=== PATIENT | female | born 1970 | race Caucasian/White ===

== ENCOUNTER → 2018-05-10 | Outpatient (CLI) | payer OTHER, SELFPAY ==
[~2018-05-10] MED LIST: ACET325 PO; ALBU90OI6 INH; Advil200 M1 PO; Aldactone25 MG PO; BENTYL10 MG PO; CEPH500 PO; CIPR750 PO; CIPRO500 MG PO; Ceftin250 MG PO; DIPATR PO; Flonase 0.05% N16 GM; GABA100 PO; GLIP5 PO; HYDR1TAB94 PO; Hydrocodone-Ap1 EA23 PO; Iron Supplemen325 MG PO; KETO120T TOP; LORA1 PO; MEDR150I IM; METCAR500 PO; METCAR750 PO; METF500 PO; METO10 PO; METR250 PO; METR500 PO; MOMENI; MONT10T; MONT10T PO; MONT5TCH PO; MULT50L PO; Minipress1 MG PO; Multi-Day Vita1 EACH PO; NAPR220 PO; OLAN5 PO; ONDA8 PO; OXYACE7.5T PO; POTASSIUM GLUC500 MG PO; POTASSIUM GLUCO90 MG PO; POTCIT5 PO; PRAZ1 PO; PROG100 PO; Percocet 5-3251 EACH PO; Prometrium200 MG PO; Pyridium200 MG PO; RANI150 PO; Robaxin-750750 MG PO; SPIR25 PO; SUMA20NI; SUMA25 PO; SUMA5NI; Solaraze100 GM; Spironolactone25 MG PO; TRAM50 PO; Ultram50 MG PO; VERA80 PO; VITAMIN C500 MG PO; VOLTAREN GEL TOP; ZYRTEC10 M1 PO; Zofran4 MG PO
== END ==
LOC: LAB 08:30 → LAB SHORT 08:30
DX: R30.0 Dysuria (principal)
CPT/HCPCS: 87086

== ENCOUNTER 2018-06-25 21:24 | Emergency (ER) | payer OTHER, SELFPAY ==
[~2018-06-25] VITALS: Ht 165.1 cm; Wt 108.9 kg
[2018-06-25] MEDS ORDERED: GABA100 (21:54)
[2018-06-25 22:29] LABS: Source, Urine Clean Catch
[2018-06-25 22:34] LABS: Bilirubin, Urine Neg (Neg); Blood, Urine Neg (Neg); Glucose Qualitative, Urine Neg (Neg); Ketones, Urine Neg (Neg); Leukocyte Esterase, Urine Neg (Neg); Nitrite, Urine Neg (Neg); Protein, Urine Neg (Neg); Urobilinogen, Urine 1+ (Normal)
[2018-06-25 22:36] LABS: Appearance, Urine Clear (Clear); Color, Urine Yellow (P-Yellow)
[2018-06-25 23:06] LABS: Calcium, Ionized (POC) 1.15 mmol/L (1.10-1.46); Chloride (POC) 103 mmol/L (98-108); Creatinine (POC) 0.7 mg/dL (0.6-1.0); Glucose (ISTAT POC) 94 mg/dL (70-99); Hemoglobin (POC) 12.9 g/dL (12.0-16.0); Potassium (POC) 3.9 mmol/L (3.5-5.5); Sodium (POC) 142 mmol/L (135-148); Total CO2 (POC) 29 mmol/L (21-32)
[2018-06-25 23:07] LABS: BASOPHILS ABSOLUTE AUTO 0.03 K/mm3 (0.00-0.23); BASOPHILS PERCENT AUTO 0 % (0-2); EOSINOPHILS ABSOLUTE AUTO 0.16 K/mm3 (0.00-0.68); EOSINOPHILS PERCENT AUTO 2 % (0-6); IMMATURE GRAN ABSOLUTE AUTO 0.01 K/mm3 (0.00-0.10); IMMATURE GRAN PERCENT AUTO 0 % (0-1); LYMPHOCYTES PERCENT AUTO 40 % (21-46); MONOCYTES ABSOLUTE AUTO 0.55 K/mm3 (0.16-1.47); MONOCYTES PERCENT AUTO 8 % (4-13); Mean Corpuscular HGB 30.8 pg (26.0-34.0); Mean Corpuscular HGB Conc 32.5 g/dL (31.5-36.5); Mean Corpuscular Volume 95 fL (80-100); Mean Platelet Volume 8.8 fL (9.1-12.4); NEUTROPHILS PERCENT AUTO 49 % (41-73); Platelet Count 276 K/mm3 (150-400); RDW Coefficient Variation 12.6 % (11.7-14.2); RDW Standard Deviation 43.7 fL (35.1-46.3); Red Blood Cell Count 4.22 M/mm3 (3.80-5.20); White Blood Cell Count 6.75 K/mm3 (4.00-11.30)
[2018-06-25 23:23] LABS: Alanine Aminotransfer (ALT/SGP 23 U/L (12-78); Albumin, Blood 3.4 g/dL (3.4-5.0); Albumin/Globulin Ratio 0.9 (0.8-1.8); Alk Phos 88 U/L (50-136); Anion Gap 6 mmol/L (6-16); Aspartate Aminotrans (AST/SGOT 19 U/L (12-37); Bilirubin, Total 0.4 mg/dL (0.1-1.0); Blood Urea Nitrogen 11 mg/dL (8-24); Bun/Creatinine Ratio 16.4 (12.0-20.0); CO2, Blood 28 mmol/L (21-32); Calcium, Blood 8.6 mg/dL (8.5-10.1); Chloride, Blood 109 mmol/L (98-108); Creatinine, Blood 0.67 mg/dL (0.40-1.00); Globulin, Blood 3.7 g/dL (2.2-4.0); Glomerular Filtration Rate >60 (60-); Glucose, Blood 91 mg/dL (70-99); Potassium, Blood 4.1 mmol/L (3.5-5.5); Sodium, Blood 143 mmol/L (136-145); Total Protein, Blood 7.1 g/dL (6.4-8.2)
[2018-06-26] MEDS ORDERED: HYDR1TAB94 PO (00:40)
== END 2018-06-26 00:55 | disposition home or self-care (01) ==
LOC: ER 21:24
PROVIDERS: Emergency Medicine
DX: R10.9 Unspecified abdominal pain (principal); M54.6 Pain in thoracic spine; M54.5 Low back pain; Z88.8 Allergy status to other drugs, medicaments and biological substances; Z88.0 Allergy status to penicillin; Z88.2 Allergy status to sulfonamides; Z79.899 Other long term (current) drug therapy; G43.909 Migraine, unspecified, not intractable, without status migrainosus; Z87.891 Personal history of nicotine dependence
CPT/HCPCS: 36415; 74176; 80047; 80053; 81003; 85014; 85025; 96374; 96375; 99284-25; J2405; J3010; J7120

== ENCOUNTER → 2019-02-19 | Outpatient (CLI) | payer OTHER ==
[~2019-02-19] MED LIST changes: +DICLOFENAC SOD100 G1 TOP; +GABA100; +MELO7.5 PO; +PRED20 PO
== END | disposition home or self-care (01) ==
LOC: LAB 13:42 → LAB SHORT 13:42
DX: R21 Rash and other nonspecific skin eruption (principal)
CPT/HCPCS: 87102

== ENCOUNTER 2020-01-09 15:14 | Inpatient (IN) | payer OTHER ==
[~2020-01-09] VITALS: Ht 165.1 cm; Wt 110.0 kg
[2020-01-10] MEDS ORDERED: Imitrex50 MG PO (11:22)
[2020-01-10] MEDS ORDERED: ONDA4 PO (11:23)
[2020-01-10] MEDS ORDERED: ALBU90OI INH (11:23)
[2020-01-10] MEDS ORDERED: META800 PO (11:24)
[2020-01-10] MEDS ORDERED: Flonase 0.05% N16 GM (11:24)
[2020-01-10] MEDS ORDERED: MOTION RELIEF25 MG PO (11:25)
[2020-01-10] MEDS ORDERED: THERA1 EACH PO (11:26)
[2020-01-10] MEDS ORDERED: CLIMARA1 EACH TOP (11:26)
[2020-01-10] MEDS ORDERED: PROM25 PO (11:26)
--- NOTE | 2020-01-12 08:34 | NUR ---
Ambulatory in Day Surgery. Patient states colon prep results clear. History, Chart, Medications and Allergies reviewed before start of procedure. Lungs clear T/O to Auscultation. Patient reports completing Chlorhexadine shower X2 prior to admission to hospital. Patient confirms NPO status and agrees with scheduled surgery. Pre-Op teaching done. Pt verbalizes understanding. PATIENT SON IN WAITING AREA.
--- NOTE | 2020-01-12 12:15 | NUR ---
PT AWAKE AND ALERT. RESPIRATIONS AUDIBLY WZ. LUNGS COARSE THROUGH OUT. SATS 100% ON 10 LITERS NON-REBREATHER. DUO NEB GIVEN. PT REPORTS 6/10 ABDOMINAL/INCISIONAL PAIN. MED WITH FENTANYL 25 MCG IVP X1 AND REGLAN 10 MG IVP X 1 FOR PAIN AND NAUSEA RESPECTIVELY. EPIDURAL INITIATED AT 10 ML/HR. WILL TITRATE UP EVERY 30 MIN TO GOAL PAIN LEVEL 3 OR LESS. EPIDURAL SITE WITH SMALL AMOUNT OF SANGINOUS DRAINAGE NOTED. DR. SOUTH AWARE. WOUND VAC/ASHLY INTACT TO MIDLINE INCISION. ABDOMINAL BINDER PLACED. PT MOVING ALL EXTREMITIES AND ABLE TO ASSIST SOMEWHAT WHEN TURNED. PAS IN PLACE.
--- NOTE | 2020-01-12 12:45 | NUR ---
PT NO LONGER AUDIBLY WZ AND STATES THAT SHE IS "BREATHING BETTER." PLACED ON 2 LITERS NASAL CANULA AND SATS>95%. PT CONTINUES TO REPORTS 6/10 ABDOMINAL INCISONAL PAIN DESPITE EPIDURAL AT 10 ML/HR. TITRATED UP TO 12 ML/HR.
--- NOTE | 2020-01-12 13:00 | NUR ---
PT APPEARS TO BE DOZING WHEN NOT DISTURBED. WHEN ASKED HER PAIN LEVEL, SHE REPORTS 4/10. SBP CONTINUES TO TREND IN 90'S.
--- NOTE | 2020-01-12 14:00 | NUR ---
PT BEGAN SHIVERING AT APROX. 1330-MULTIPLE WARM BLANKETS APPLIED. DR. SOUTH NOTIFIED. ORDER GIVEN FOR ONE TIME DOSE OF DEMEROL.HOWEVER, THIS MED IS NOT AVAILABLE IN [facility].
--- NOTE | 2020-01-12 17:22 | NUR ---
SUMMARY PT ARRIVED TO UNIT FROM PACU THIS AFTERNOON S/P SIGMOID COLECTOMY. ASHLY DRESSING TO MIDLINE INCISION CDI W/ABD BINDER IN PLACE UPON ARRIVAL. SMALL AMT DRAINAGE NOTED AROUND EPIDURAL WHICH TRAMPOLINE TEAM COACH STATED DR SOUTH WAS AWARE OF. NO NEW DRAINAGE NOTED AROUND SITE. PT REPORTS PAIN 4-5/10. REPOSITIONED FOR COMFORT. PT REPORTS R LEG WEAK, UNABLE TO MOVE WELL ON OWN. DECREASED SENSATION NOTED FROM UMBILICUS DOWN TO KNEE. TOLERATING SIPS OF WATER. VSS. CALL LIGHT IN REACH.
--- NOTE | 2020-01-13 01:10 | NUR ---
EPIDURAL RATE DECREASED TO 10 MCG/HR D/T LOW BP.
--- NOTE | 2020-01-13 03:19 | NUR ---
PT FOUND TO DESATURATE TO 86% WHEN SLEEPING. ENCOURAGED DB&C, WHICH IMPROVES SATURATIONS FOR APPROX 1-2 MINS. O2 @ 1 LPM APPLIED VIA NC. SATURATIONS MAINTAINING >91%.
[2020-01-13 05:24] LABS: BASOPHILS ABSOLUTE AUTO 0.01 K/mm3 (0.00-0.23); BASOPHILS PERCENT AUTO 0 % (0-2); EOSINOPHILS ABSOLUTE AUTO 0.04 K/mm3 (0.00-0.68); EOSINOPHILS PERCENT AUTO 1 % (0-6); Hematocrit 37.3 % (33.0-51.0); IMMATURE GRAN ABSOLUTE AUTO 0.01 K/mm3 (0.00-0.10); IMMATURE GRAN PERCENT AUTO 0 % (0-1); LYMPHOCYTES ABSOLUTE AUTO 1.28 K/mm3 (0.84-5.20); LYMPHOCYTES PERCENT AUTO 16 % (21-46); MONOCYTES ABSOLUTE AUTO 0.67 K/mm3 (0.16-1.47); MONOCYTES PERCENT AUTO 8 % (4-13); Mean Corpuscular HGB 31.8 pg (26.0-34.0); Mean Corpuscular HGB Conc 32.2 g/dL (31.5-36.5); Mean Corpuscular Volume 99 fL (80-100); Mean Platelet Volume 9.3 fL (9.1-12.4); NEUTROPHILS ABSOLUTE AUTO 6.08 K/mm3 (1.96-9.15); NEUTROPHILS PERCENT AUTO 75 % (41-73); Platelet Count 250 K/mm3 (150-400); RDW Coefficient Variation 12.8 % (11.7-14.2); Red Blood Cell Count 3.77 M/mm3 (3.80-5.20); White Blood Cell Count 8.09 K/mm3 (4.00-11.30)
--- NOTE | 2020-01-13 05:52 | NUR ---
SHIFT SUMMARY: AUGUST HAS RESTED VERY LITTLE THIS SHIFT. SHE IS POD1 TODAY FOR A SIGMOID COLECTOMY. SHE IS ON Q 1 HOUR VITAL SIGN CHECKS FOR THE EPIDURAL THAT WAS PLACED YESTERDAY IN THE OR. HER CONTINUOUS RATE ON THE EPIDURAL WAS TURNED DOWN TO 10 MCG/HR D/T LOW BP. HER BP ON ADMISSION TO DAY SURGERY YESTERDAY WAS 102/72. SHE DID REPORT FEELING DEHYDRATED D/T DRINKING THE COLON PREP PRIOR TO SURGERY. SHE IS ABLE TO MAKE HER NEEDS KNOWN, USES THE CALL LIGHT APPROPRIATELY. MIDLINE INCISION C/D&I, ASHLY IN PLACE. IV TO R AC PATENT. SHE REPORTS DECREASED SENSATION BEGINNING AT LOW ABDOMEN AND RESOLVING AT KNEE LEVEL. SHE DOES REPORT SOME WEAKNESS IN THE RIGHT LEG, BUT NONE IN THE LEFT. SHE REPORTS THAT THE EPIDURAL, K-PAD, AND TORADOL HAVE KEPT HER PAIN AT A TOLERABLE LEVEL. SHE IS TOLERATING PO INTAKE WELL, DENIES N/V. SHE DOES STATE THAT HER RIGHT FOOT HAS TINGLING, "LIKE IT FELL ASLEEP". 1-0.5 LPM OF O2 VIA NC WAS APPLIED D/T DESATURATIONS WHEN SHE WAS SLEEPING. WALDRON IN PLACE DRAINING CLEAR, YELLOW URINE. SHE DID SIT AT THE SIDE OF THE BED FOR A SHORT TIME THIS SHIFT WITH THE ASSISTANCE OF ONE STAFF MEMBER. SHE IS LYING IN BED WITH HER CALL LIGHT IN REACH. WILL REPORT TO DAY SHIFT RN.
[2020-01-13 05:53] LABS: Anion Gap 8 mmol/L (6-16); Blood Urea Nitrogen 7 mg/dL (8-24); Bun/Creatinine Ratio 10.7 (12.0-20.0); CO2, Blood 24 mmol/L (21-32); Calcium, Blood 8.4 mg/dL (8.5-10.1); Chloride, Blood 111 mmol/L (98-108); Creatinine, Blood 0.65 mg/dL (0.40-1.00); Glomerular Filtration Rate >60 (60-); Glucose, Blood 120 mg/dL (70-99); Potassium, Blood 3.8 mmol/L (3.5-5.5); Sodium, Blood 143 mmol/L (136-145)
--- NOTE | 2020-01-13 14:41 | NUR ---
SHIFT SUMMARY PT A&OX4, VSS, POD1 SIGMOID COLECTOMY, MIDLINE ASHLY, ABD BINDER, KPAD ON. EPIDURAL AT 10MLS/HR, PT REP PAIN MANAGED WELL; DECREASED SENSATION T10-L3, RLE N&T. WALDRON PATENT & DRAINING YELLOW URINE, STAT LOCK ON, OFF FLOOR. INGRID CLEAR LIQ DIET; DENIES N&V. AMB W/2 PP MAX ASSIST TO CHAIR. NO IV ACCESS ORDER. WILL REPORT TO NEXT RN.
--- NOTE | 2020-01-13 16:55 | NUR ---
assumed care of pt from ines box rn
--- NOTE | 2020-01-14 05:24 | NUR ---
SHIFT SUMMARY: AUGUST RESTED INTERMITTENTLY THIS SHIFT. SHE IS A&OX4, NO IV ACCESS. SHE HAS COMPLAINED OF NAUSEA THIS SHIFT AND WAS ENCOURAGED TO DECREASE PO INTAKE TO SMALL SIPS INSTEAD OF PUSHING INTAKE. SHE WAS UP TO THE CHAIR FOR A TIME, THEN RETURNED TO BED WTIH 2 PERSON HEAVY ASSIST. SHE HAS DECREASED SENSATION FROM WAISTLINE TO KNEES WITH N/T & WEAKNESS IN THE RLE. PAS AND BHARATI HOSE IN PLACE. WALDRON DRAINING DARK YELLOW URINE. SHE IS ABLE TO MAKE HER NEEDS KNOWN. SHE USES HER CALL LIGHT APPROPRIATELY. IS ENCOURAGED. SHE IS LYING IN BED WITH HER CALL LIGHT IN REACH. WILL REPORT TO DAY SHIFT RN.
--- NOTE | 2020-01-14 13:49 | NUR ---
NAUSEA PT C/O NAUSEA, MEDICATED WITH ZOFRAN AT APROX 1310. PT GIVEN EMESIS BAG. PT STATES HEART FEELS "FLUTTERY" VS CHECKED AND ALL WNL. PRIMARY RN WILL ADMINISTER ATIVAN PER EMAR FOR ANXIETY.
--- NOTE | 2020-01-14 17:38 | NUR ---
SHIFT SUMMARY NO ACUTE CHANGES. DERMATOMES L1-L3. RLE STILL WITH NUMBNESS, BUT PT REPORTS SHE IS ABLE TO WIGGLE TOES/FLEX FEET MORE TODAY THAN YESTERDAY. EPIDURAL IN PLACE AND SITE WNL. PT REPORTS PAIN 7/10 MOST OF SHIFT. IBUPROFEN GIVEN. PT ALSO INTERMITTENTLY NAUSEOUS. ZOFRAN GIVEN. SLOWLY INGRID CLEARS/FULL LIQ DIET. CONT TO PASS GAS AND HAD SMALL AMOUNT OF LIQ STOOL TODAY. NO IV ACCESS PER DR. HEARD. PT UP TO CHAIR TODAY. PLAN IS FOR EPIDURAL TO BE DC'D TOMORROW. CALL LIGHT WITHIN REACH.
--- NOTE | 2020-01-15 04:41 | NUR ---
SHIFT SUMMARY: AUGUST HAS RESTED INTERMITTENTLY THIS SHIFT. A&OX4. REPORTS PAIN IMPROVED AFTER NAUSEA IMPROVED WITH FULL LIQUID DIET. ORA. VSS. SHE IS SITTING IN THE RECLINER WITH HER CALL LIGHT IN REACH.
--- NOTE | 2020-01-15 09:11 | NUR ---
01/15/20 0911 Antonella Covarrubias CHART AUDITS, VERIFICATIONS.
--- NOTE | 2020-01-15 17:57 | NUR ---
SUMMARY NO ACUTE CHANGES T/O SHIFT. PT'S EPIDURAL DC'D, MEDICATED PER ORDERS FOR PAIN. PT REPORTS RLE CONTINUES TO "FEEL FUNNY" STATING FEELS WARM, THEN COLD AND PINS AND NEEDLES AT TIMES. NO REDNESS OR SWELLING NOTED TO RLE. PT TOLERATING FULL LIQUIDS. PLAN TO ADVANCE TO REGULAR DIET FOR BREAKFAST. PT HAS BEEN SITTING UP IN CHAIR MOST OF DAY, STATING MORE COMFORTABLE THAN BED. PASSING FLATUS AND HAVING LIQUID GREEN STOOLS.
--- NOTE | 2020-01-16 04:32 | NUR ---
SHIFT SUMMARY: PT S/P SIGMOID COLECTOMY. PAIN MANAGED WITH PERCOCET PER EMAR. PT OUT OF BED W/FWW AND SBA. VOIDING SMALL AMOUNTS EACH TIME. BLADDER SCAN SHOWED 48CC. PT ENCOURAGED TO INCREASE PO INTAKE TO STAY HYDRATED. PT PASSING FLATUS AND HAVING SMALL LIQ BM'S. ASHLY DRESSING CDI WITH FOAM COMPRESSED. ABD BINDER IN PLACE. PT USING K-PAD FOR COMFORT. PT ENC TO USE INCENTIVE SPIROMETER O2 AT 90% THIS MORNING. PT AMBULATING HALLWAY THIS MORNING. RLE REMAINS WEAK WITH SLIGHT N/T. PT REPORTS MAINLY N/T FROM HIP TO KNEE. CBG'S STABLE THIS SHIFT.
--- NOTE | 2020-01-16 13:38 | NUR ---
DR HEARD IN TO SEE PT.
--- NOTE | 2020-01-16 18:25 | NUR ---
SUMMARY NO ACUTE CHANGES T/O SHIFT. PT TOLERATING SMALL AMOUNTS REGULAR DIET. MEDICATED ONCE DURING SHIFT THIS AM FOR NAUSEA. MEDICATED T/O SHIFT FOR ABDOMINAL PAIN. PT NOW REPORTING HALEY; PROVIDED ICE PACK WHICH PT PLACED TO NECK. AMBULATED IN HALLS. SAT UP IN CHAIR T/O SHIFT. VOIDING AND PASSING STOOL. CALL LIGHT IN REACH.
--- NOTE | 2020-01-17 05:49 | NUR ---
SHIFT SUMMARY: PT S/P SIGMOID COLECTOMY. PT PASSING FLATUS AND HAVING LIQ BM'S. OUT OF BED INDEPENDENTLY. PAIN MANAGED WITH PERCOCET PER EMAR. MIDLINE ASHLY CDI. GIVEN EXCEDRIN PER EMAR FOR HEADACHE. PT C/O OF PRESSURE AND BURNING WITH URINATION. VOIDING MINIMAL AMOUNT EACH TIME. BLADDER SCAN SHOWED 0CC OF URINE. ORDER FOR URINALYSIS CULTURE RECIEVED. WAITING FOR PT TO VOID TO SEND SAMPLE.
[2020-01-17 09:40] LABS: Source, Urine Voided
[2020-01-17 09:53] LABS: Bilirubin, Urine Neg (Neg); Blood, Urine 1+ (Neg); Glucose Qualitative, Urine Neg (Neg); Ketones, Urine 1+ (Neg); Leukocyte Esterase, Urine 3+ (Neg); Nitrite, Urine Neg (Neg); Protein, Urine Neg (Neg); Urobilinogen, Urine NORM (Normal); pH, Urine 6.5 (5.0-8.0)
[2020-01-17 10:02] LABS: Appearance, Urine Clear (Clear); Color, Urine Yellow (P-Yellow)
[2020-01-17 10:03] LABS: White Blood Cells, Urine 50-100 /hpf (0-5)
[2020-01-17 10:04] LABS: Bacteria Mod /hpf; Squamous Epithelial Cells Few /hpf (Few)
--- NOTE | 2020-01-17 18:34 | NUR ---
SHIFT SUMMARY NO ACUTE CHANGES NOTED FROM ASSESSMENT. DRSG REMAINS C/D/I, ASHLY WOUND VAC IN PLACE. PT IS TOLERATING PO INTAKE, SHE WAS ENC TO WALK IN THE HALLS A MINIMUM OF 4 TIMES TODAY, SHE HAS GONE 3/4. PAIN MANAGED WITH PO PERCOCET/MOTRIN. PT IS HAVING MULTIPLE BM'S AND VOIDING WNL, WITH MILD BURNING SENSATION PER PT STATEMENT, UA WAS SENT. PT IS TOLERATING PO INTAKE. CALL LIGHT IN REACH. WCTM
--- NOTE | 2020-01-18 07:23 | NUR ---
SHIFT SUMMARY POD#6. AAOX4. DISCOMFORT CONTROLLED WITH 2 PAIN PILLS Q4H. NAUSEA CONTROLLED WITH X1 ZOFRAN, NO EMESIS. ASHLY DRESSING TO ABD C/D/I. INDEPENDENT IN ROOM. GOOD PO INTAKE + OUTPUT. MULTIPLE LOOSE STOOL THROUGH THE NIGHT. CONTINUE TO ENCOURAGE AMBULATION TODAY. NO ACUTE CHANGES OVER NIGHT. PT RESTING AT THIS TIME WITH CALL LIGHT IN REACH. REPORT TO DAY SHIFT RN.
[2020-01-18] MEDS ORDERED: Percocet 5-3251 EACH PO (13:34)
--- NOTE | 2020-01-18 14:45 | NUR ---
DISCHARGE PT EDUCATED ON AND RECEIVED PRINTED DC INSTRUCTIONS AND VERBALIZED AN UNDERSTANDING. HARD RX FOR PERCOCET GIVEN TO PT. ALL PERSONAL BELONGINGS GATHERED BY PT. PT GETTING DRESSED INDEP. NO IVS. PT WAITING FOR FRIEND TO GET HERE FOR RIDE HOME.
== END 2020-01-18 14:59 | disposition home or self-care (01) | DRG 330 ==
LOC: SURS 01-12 05:58 → PRE IP 01-12 08:30 → SURS 01-12 14:12
PROVIDERS: ADMIT Surgery
PROC: 0DTN4ZZ Resection of Sigmoid Colon, Percutaneous Endoscopic Approach (ICD-10-PCS; principal; 2020-01-12 08:30)
DX: K57.32 Diverticulitis of large intestine without perforation or abscess without bleeding (principal); Z68.41 Body mass index [BMI] 40.0-44.9, adult; E11.9 Type 2 diabetes mellitus without complications; F43.10 Post-traumatic stress disorder, unspecified; E66.9 Obesity, unspecified; Z98.84 Bariatric surgery status; Z87.891 Personal history of nicotine dependence
CPT/HCPCS: 36415; 80048; 81001; 82947; 85025; 87086; 88307; 94760; A9270-GY; J0690; J1100; J1650; J1885; J2250; J2370; J2405; J2704; J2710; J2765; J3010; J7120; Q0163; V2790

== ENCOUNTER → 2021-03-31 | Outpatient (CLI) | payer OTHER, SELFPAY ==
[~2021-03-31] MED LIST changes: +ALBU90OI INH; +CLIMARA1 EACH TOP; +Imitrex50 MG PO; +META800 PO; +MOTION RELIEF25 MG PO; +ONDA4 PO; +PROM25 PO; +THERA1 EACH PO
[2021-04-01 14:37] LABS: C DIFFICILE DNA NEGATIVE (Negative)
== END | disposition home or self-care (01) ==
LOC: LAB 20:40 → LAB SHORT 20:40 → LAB FUT 03-31 15:50
PROVIDERS: Internal Medicine
DX: R19.7 Diarrhea, unspecified (principal)
CPT/HCPCS: 87493

== ENCOUNTER → 2021-04-01 | Outpatient (CLI) | payer OTHER, SELFPAY | END | disposition home or self-care (01) | LOC: LAB SHORT 08:59 → LAB 08:59 | DX: R19.7 Diarrhea, unspecified (principal) | CPT/HCPCS: 87015; 87045; 87046; 87077; 87177; 87186; 87205; 87209; 87899 ==

== ENCOUNTER 2021-04-07 18:12 | Emergency (ER) | payer OTHER, SELFPAY ==
[~2021-04-07] VITALS: Ht 165.1 cm; Wt 104.3 kg
[2021-04-07 19:00] LABS: BASOPHILS ABSOLUTE AUTO 0.04 K/mm3 (0.00-0.23); BASOPHILS PERCENT AUTO 0 % (0-2); EOSINOPHILS ABSOLUTE AUTO 0.11 K/mm3 (0.00-0.68); EOSINOPHILS PERCENT AUTO 1 % (0-6); Hematocrit 43.3 % (33.0-51.0); Hemoglobin 14.5 g/dL (11.5-16.0); IMMATURE GRAN ABSOLUTE AUTO 0.02 K/mm3 (0.00-0.10); IMMATURE GRAN PERCENT AUTO 0 % (0-1); LYMPHOCYTES ABSOLUTE AUTO 3.05 K/mm3 (0.84-5.20); LYMPHOCYTES PERCENT AUTO 27 % (21-46); MONOCYTES ABSOLUTE AUTO 0.76 K/mm3 (0.16-1.47); MONOCYTES PERCENT AUTO 7 % (4-13); Mean Corpuscular HGB Conc 33.5 g/dL (31.5-36.5); Mean Corpuscular Volume 93 fL (80-100); Mean Platelet Volume 9.2 fL (9.1-12.4); NEUTROPHILS ABSOLUTE AUTO 7.19 K/mm3 (1.96-9.15); NEUTROPHILS PERCENT AUTO 64 % (41-73); Platelet Count 327 K/mm3 (150-400); RDW Coefficient Variation 13.3 % (11.7-14.2); RDW Standard Deviation 45.2 fL (35.1-46.3); Red Blood Cell Count 4.67 M/mm3 (3.80-5.20); White Blood Cell Count 11.17 K/mm3 (4.00-11.30)
[2021-04-07 19:21] LABS: Troponin I <0.015 ng/mL (0.000-0.040)
[2021-04-07 19:23] LABS: Alanine Aminotransfer (ALT/SGP 33 U/L (12-78); Albumin, Blood 3.7 g/dL (3.4-5.0); Albumin/Globulin Ratio 0.9 (0.8-1.8); Alk Phos 86 U/L (50-136); Anion Gap 5 mmol/L (6-16); Aspartate Aminotrans (AST/SGOT 30 U/L (12-37); Bilirubin, Total 0.4 mg/dL (0.1-1.0); Blood Urea Nitrogen 13 mg/dL (8-24); Bun/Creatinine Ratio 17.8 (12.0-20.0); CO2, Blood 25 mmol/L (21-32); Calcium, Blood 9.2 mg/dL (8.5-10.1); Chloride, Blood 109 mmol/L (98-108); Creatinine, Blood 0.73 mg/dL (0.40-1.00); Globulin, Blood 3.9 g/dL (2.2-4.0); Glomerular Filtration Rate >60 (60-); Glucose, Blood 81 mg/dL (70-99); Potassium, Blood 4.1 mmol/L (3.5-5.5); Sodium, Blood 139 mmol/L (136-145); Total Protein, Blood 7.6 g/dL (6.4-8.2)
== END 2021-04-07 21:19 | disposition home or self-care (01) ==
LOC: ER 18:12
PROVIDERS: Emergency Medicine
DX: R07.89 Other chest pain (principal); R00.2 Palpitations; Z88.0 Allergy status to penicillin; Z88.2 Allergy status to sulfonamides; Z88.8 Allergy status to other drugs, medicaments and biological substances; Z79.899 Other long term (current) drug therapy; Z87.891 Personal history of nicotine dependence
CPT/HCPCS: 36415; 71045; 80053; 83880; 84484; 85025; 93005; 93010; 99285-25; A9270

== ENCOUNTER 2025-07-05 17:46 | Emergency (ER) | payer OTHER ==
[~2025-07-05] VITALS: Ht 165.1 cm; Wt 74.8 kg
[2025-07-05] MEDS ORDERED: OZEMPIC2 MG/0.75 (18:03)
[2025-07-05] MEDS ORDERED: Ativan1 MG (18:04)
[2025-07-05] MEDS ORDERED: LETROZOLE2.5 M3 PO (18:04)
[2025-07-05] MEDS ORDERED: CELEBREX200 MG PO (18:04)
[2025-07-05] MEDS ORDERED: ZYRTEC-D ER 51 EACH (18:04)
[2025-07-05] MEDS ORDERED: ROSUVASTATIN CA10 MG PO (18:04)
[2025-07-05] MEDS ORDERED: Ondansetron Odt8 MG MM (18:05)
[2025-07-05] MEDS ORDERED: ALDACTONE100 MG PO (18:05)
[2025-07-05] MEDS ORDERED: EUTHYROX75 MC1 PO (18:05)
[2025-07-05] MEDS ORDERED: Metformin HCl750 MG PO (18:06)
[2025-07-05] MEDS ORDERED: Ketorolac Tromethamine 15mg Vial IV ONE (18:25)
[2025-07-05 19:01] LABS: BASOPHILS ABSOLUTE AUTO 0.03 K/mm3 (0.00-0.23); BASOPHILS PERCENT AUTO 1 % (0-2); EOSINOPHILS ABSOLUTE AUTO 0.15 K/mm3 (0.00-0.68); EOSINOPHILS PERCENT AUTO 2 % (0-6); Hematocrit 42.1 % (33.0-51.0); Hemoglobin 14.3 g/dL (11.5-16.0); IMMATURE GRAN ABSOLUTE AUTO 0.01 K/mm3 (0.00-0.10); IMMATURE GRAN PERCENT AUTO 0 % (0-1); LYMPHOCYTES ABSOLUTE AUTO 2.09 K/mm3 (0.84-5.20); LYMPHOCYTES PERCENT AUTO 31 % (21-46); MONOCYTES ABSOLUTE AUTO 0.48 K/mm3 (0.16-1.47); MONOCYTES PERCENT AUTO 7 % (4-13); Mean Corpuscular HGB Conc 34.0 g/dL (31.5-36.5); Mean Corpuscular Volume 93 fL (80-100); NEUTROPHILS ABSOLUTE AUTO 3.90 K/mm3 (1.96-9.15); NEUTROPHILS PERCENT AUTO 58 % (41-73); NRBC ABSOLUTE 0.00 K/mm3 (0.00-0.02); NRBC Auto 0.0 /100 WBC (0.0-0.2); Platelet Count 321 K/mm3 (150-400); RDW Coefficient Variation 11.9 % (11.7-14.2); RDW Standard Deviation 40.7 fL (35.1-46.3)
[2025-07-05 19:05] LABS: Prothrombin Time Results 10.8 Sec (9.7-11.5)
[2025-07-05 19:29] LABS: Alanine Aminotransfer (ALT/SGP 28.0 U/L (12-78); Albumin, Blood 4.0 g/dL (3.4-5.0); Albumin/Globulin Ratio 1.2 (0.8-1.8); Anion Gap 4.0 mmol/L (3-11); Aspartate Aminotrans (AST/SGOT 22.0 U/L (12-37); Bilirubin, Total 0.8 mg/dL (0.1-1.0); Blood Urea Nitrogen 17.0 mg/dL (8-24); CO2, Blood 26.0 mmol/L (21-32); Calcium, Blood 9.7 mg/dL (8.5-10.1); Chloride, Blood 107.0 mmol/L (98-108); Creatinine, Blood 1.12 mg/dL (0.40-1.00); Globulin, Blood 3.3 g/dL (2.2-4.0); Glucose, Blood 78.0 mg/dL (70-99); Potassium, Blood 4.2 mmol/L (3.5-5.5); Sodium, Blood 133.0 mmol/L (136-145); Total Protein, Blood 7.3 g/dL (6.4-8.2)
[2025-07-05 19:55] VITALS: BP 119/78
[2025-07-05] MEDS ORDERED: DiphenhydrAMINE HCl 50 MG/ML 1ML Vial IV ONE (20:00)
[2025-07-05] MEDS ORDERED: Prochlorperazine Edisylate 10 mg Vial IV ONE (20:00)
== END 2025-07-05 20:29 | disposition home or self-care (01) ==
LOC: ER 17:46
PROVIDERS: Student in an Organized Health Care Education/Training Program
DX: S16.1XXA Strain of muscle, fascia and tendon at neck level, initial encounter (principal); S29.012A Strain of muscle and tendon of back wall of thorax, initial encounter; Z88.0 Allergy status to penicillin; Z88.8 Allergy status to other drugs, medicaments and biological substances; Z88.2 Allergy status to sulfonamides; Z79.2 Long term (current) use of antibiotics; Z79.899 Other long term (current) drug therapy; Z87.891 Personal history of nicotine dependence; V89.2XXA Person injured in unspecified motor-vehicle accident, traffic, initial encounter; Z90.710 Acquired absence of both cervix and uterus; Z90.49 Acquired absence of other specified parts of digestive tract
CPT/HCPCS: 71260; 72125; 80053; 83690; 85025; 85610; 96374-59; 96375; 99284-25; J0780; J1200; J1885; Q9967